=== PATIENT | female | born 1960 | race Caucasian/White ===

== ENCOUNTER 2017-11-09 17:24 | Outpatient (REF) | payer OTHER, SELFPAY ==
[2017-11-11 09:39] LABS: HBs Antibody, Quant <3.1 mIU/mL; Hepatitis B Surface Ab Negative
[2017-11-11 10:24] LABS: Hepatitis C Ab w Rflx HCV PCR Negative (NEGAT)
[2017-11-11 11:06] LABS: Hepatitis A IgM Ab Negative (Negative)
== END 2017-11-09 17:44 ==
LOC: NCHCN 17:24
PROVIDERS: PCP Nurse Practitioner Family; Visit Provider Nurse Practitioner Family
DX: Z11.59 Encounter for screening for other viral diseases (principal); Z71.89 Other specified counseling; Z00.00 Encounter for general adult medical examination without abnormal findings
CPT/HCPCS: 86706; 86803; 86709

== ENCOUNTER 2017-11-16 00:46 | Outpatient (CLI) | payer OTHER, SELFPAY ==
--- NOTE | 2017-11-16 08:29 | DI.MAMMO_ITS ---
SYMPTOM/DIAGNOSIS: SCREENING, Z12.31 MAMMOGRAM: Mammograms were interpreted according to the usual protocol including computer analysis with CAD system, tomosynthesis and C view imaging. Comparison with prior examinations. Breast density B. No masses or microcalcifications are seen. There is nothing to suggest malignancy. IMPRESSION: Negative mammogram. Routine screening is recommended. Category I. MQSA ASSESSMENT OF FINDINGS: Negative. Category 1. Patient will receive a letter notifying them of these results. BI-RADS category B. There are scattered areas of fibroglandular density.
== END 2017-11-16 01:06 ==
PROVIDERS: PCP Nurse Practitioner Family; Visit Provider Nurse Practitioner Family
DX: Z12.31 Encounter for screening mammogram for malignant neoplasm of breast (principal)
CPT/HCPCS: 77063; 77067

== ENCOUNTER 2018-02-08 11:48 | Outpatient (REF) | payer OTHER, SELFPAY ==
[2018-02-08 22:44] LABS: ALT 34 U/L (12-78); AST 16 U/L (15-37); Albumin 3.9 g/dL (3.4-5.0); Alkaline Phosphatase 78 U/L (46-116); Anion Gap 10.8 mmol/L (3-11); BUN 13 mg/dL (7-18); Bilirubin, Total 0.3 mg/dL (0.2-1.0); CO2 28.2 mmol/L (21.0-32.0); CREATININE 0.79 mg/dL (0.55-1.02); Calcium 8.9 mg/dL (8.5-10.1); Chloride 100 mmol/L (98-107); Glucose 103 mg/dL (70-100); Potassium 4.2 mmol/L (3.5-5.1); Sodium 139 mmol/L (136-145)
== END 2018-02-08 12:08 ==
LOC: NCHCN 11:48
PROVIDERS: PCP Nurse Practitioner Family; Visit Provider Nurse Practitioner Family
DX: K30 Functional dyspepsia (principal); R00.2 Palpitations; G25.81 Restless legs syndrome; F41.8 Other specified anxiety disorders; I10 Essential (primary) hypertension; E78.5 Hyperlipidemia, unspecified; J30.2 Other seasonal allergic rhinitis; G47.9 Sleep disorder, unspecified
CPT/HCPCS: 80053

== ENCOUNTER 2018-03-19 17:11 | Outpatient (REF) | payer OTHER, SELFPAY ==
[2018-03-19 20:47] LABS: Abs Immature Grans 0.05 k/cumm (0.0-0.09); Absolute Basophil Count 0.09 k/cumm (0.0-0.2); Absolute Eosinophil Count 0.21 k/cumm (0.0-0.7); Absolute Lymphocyte Count 2.15 k/cumm (1.2-3.4); Absolute Monocyte Count 0.69 k/cumm (0.11-0.7); Absolute Neutrophil Count 4.09 k/cumm (1.2-6.7); Basophils % 1.2; Eosinophils % 2.9; HCT 42.8 % (36.0-46.0); HGB 14.7 g/dL (12.0-15.5); Immature Grans % 0.7; Lymphocytes % 29.5; Mean Corp. HGB Concentration 34.3 g/dL (32.0-36.0); Mean Corpuscular Hemoglobin 30.4 pg (27.0-33.0); Mean Corpuscular Volume 88.6 fL (80-95); Mean Platelet Volume 10.4 fL (8.0-11.0); Monocytes % 9.5; Neutrophils % 56.2; Platelet Count 232 x1000/uL (130-400); RBC 4.83 m/cumm (4.00-5.20); RBC Distribution Width 12.5 % (11.7-14.6); White Blood Cell Count 7.28 k/cumm (4.4-10.8)
[2018-03-19 21:19] LABS: Anion Gap 9.6 mmol/L (3-11); BUN 12 mg/dL (7-18); CO2 28.4 mmol/L (21.0-32.0); CREATININE 0.93 mg/dL (0.55-1.02); Calcium 9.6 mg/dL (8.5-10.1); Chloride 101 mmol/L (98-107); Glucose 108 mg/dL (70-100); Potassium 4.2 mmol/L (3.5-5.1); Sodium 139 mmol/L (136-145); TSH 1.32 uIU/mL (0.358-3.74)
[2018-03-19 21:35] LABS: FREE T4 1.04 ng/dL (0.76-1.46)
[2018-03-19 21:59] LABS: ESR 5 MM/HR (0-30)
[2018-03-20 17:38] LABS: T3,Free 3.5 pg/ml (2.8-5.3)
== END 2018-03-19 17:31 ==
LOC: NCHCN 17:11
PROVIDERS: PCP Nurse Practitioner Family; Visit Provider Nurse Practitioner Family
DX: N95.1 Menopausal and female climacteric states (principal); R23.2 Flushing
CPT/HCPCS: 80048; 85652; 83735; 84439; 84443; 84481; 85025

== ENCOUNTER 2018-12-08 01:26 | Outpatient (CLI) | payer OTHER, SELFPAY ==
--- NOTE | 2018-12-08 13:10 | DI.MAMMO_ITS ---
EXAM: MG MAMMO SCREENING CLINICAL HISTORY: SCREENING, Z12.31. TECHNIQUE: Mammograms were interpreted according to the usual protocol including computer analysis w [employer] CAD system, tomosynthesis and C-view imaging. COMPARISON: 2009 THROUGH 2018 FINDINGS: The breasts are heterogeneously dense, which may obscure small masses. There are no dominant masses o r microcalcifications. There has been no significant change in comparison with the previous examinati ons. IMPRESSION: Yearly screening mammography is recommended. BI-RADS Cat 1 - Negative Breast Density - Category C - Heterogeneously dense
== END 2018-12-08 01:46 ==
PROVIDERS: PCP Nurse Practitioner Family; Visit Provider Nurse Practitioner Family
DX: Z12.31 Encounter for screening mammogram for malignant neoplasm of breast (principal)
CPT/HCPCS: 77063; 77067

== ENCOUNTER 2019-03-15 13:51 | Outpatient (REF) | payer OTHER, SELFPAY ==
[2019-03-15 21:27] LABS: ALT 35 U/L (14-59); AST 17 U/L (15-37); Albumin 4.1 g/dL (3.4-5.0); Alkaline Phosphatase 81 U/L (46-116); Anion Gap 11.6 mmol/L (3-11); BUN 15 mg/dL (7-18); Bilirubin, Total 0.4 mg/dL (0.2-1.0); CO2 27.4 mmol/L (21.0-32.0); CREATININE 0.63 mg/dL (0.55-1.02); Calcium 9.5 mg/dL (8.5-10.1); Chloride 101 mmol/L (98-107); Glucose 105 mg/dL (74-106); Potassium 4.4 mmol/L (3.5-5.1); Sodium 140 mmol/L (136-145)
== END 2019-03-15 14:11 ==
LOC: NCHCN 13:51
PROVIDERS: PCP Nurse Practitioner Family; Visit Provider Nurse Practitioner Family
DX: E78.5 Hyperlipidemia, unspecified (principal); G47.9 Sleep disorder, unspecified; F41.8 Other specified anxiety disorders; I10 Essential (primary) hypertension; R07.9 Chest pain, unspecified; K30 Functional dyspepsia
CPT/HCPCS: 80053

== ENCOUNTER 2020-03-05 01:28 | Outpatient (CLI) | payer OTHER, SELFPAY ==
--- NOTE | 2020-03-05 15:07 | DI.MAMMO_ITS ---
EXAM: MG MAMMO SCREENING CLINICAL HISTORY: SCREENING, Z12.31. TECHNIQUE: Bilateral full field digital CC and MLO mammographic images were obtained with 3D tomosyn thesis and utilizing computer aided detection (CAD). COMPARISON: Prior mammograms dating back to 2011, the most recent being November 2018. FINDINGS: There are no CAD designations. There are no spiculated masses nor malignant appearing microcalcification groups. There is no signif icant architectural distortion nor skin thickening-retraction. IMPRESSION: No radiographic evidence of malignancy. BI-RADS Category 1 - Negative Breast Density - Category C - Heterogeneously dense Breast density Category C or D implies that the patient has dense breast tissue. Dense breast tissue can make it harder to find cancer on a mammogram. Dense breast tissue is also associated with an incr eased risk of breast cancer. This information about the result of the mammogram report was provided to the patient to raise their awareness. Use this report when you speak with the patient about their risks for breast cancer, which includes their family history. At that time, you may recommend additional screening tests (Ultrasoun d or MRI) as these tests may add significant information. A negative radiographic report should not delay biopsy if a dominant or clinically suspicious mass is present. Up to ten percent of cancers are not identified on mammography. A negative report may reinforce clinical impression. Adenosis and dense breasts may obscure an underlying neoplasm. False positive reports average 6 to 10%. Patient will receive a letter notifying them of these results.
== END 2020-03-05 01:48 ==
PROVIDERS: PCP Nurse Practitioner Family; Visit Provider Nurse Practitioner Family
DX: Z12.31 Encounter for screening mammogram for malignant neoplasm of breast (principal)
CPT/HCPCS: 77063; 77067

== ENCOUNTER 2020-03-15 11:25 | Outpatient (REF) | payer OTHER, SELFPAY ==
[2020-03-15 21:10] LABS: ALT 42 U/L (14-59); AST 23 U/L (15-37); Albumin 4.2 g/dL (3.4-5.0); Alkaline Phosphatase 91 U/L (46-116); Anion Gap 10.8 mmol/L (3-11); BUN 13 mg/dL (7-18); Bilirubin, Total 0.4 mg/dL (0.2-1.0); CO2 26.2 mmol/L (21.0-32.0); CREATININE 0.87 mg/dL (0.55-1.02); Calcium 9.3 mg/dL (8.5-10.1); Chloride 102 mmol/L (98-107); Glucose 122 mg/dL (74-106); Potassium 4.3 mmol/L (3.5-5.1); Sodium 139 mmol/L (136-145); Total Protein 7.4 g/dL (6.4-8.2)
== END 2020-03-15 11:45 ==
LOC: NCHCN 11:25
PROVIDERS: PCP Nurse Practitioner Family; Visit Provider Nurse Practitioner Family
DX: E78.5 Hyperlipidemia, unspecified (principal); I10 Essential (primary) hypertension; R07.9 Chest pain, unspecified; F41.8 Other specified anxiety disorders
CPT/HCPCS: 80053

== ENCOUNTER 2020-07-16 08:59 | Outpatient (REF) | payer OTHER, SELFPAY ==
[2020-07-16 14:02] LABS: Hemoglobin A1C 5.7 % (<5.7)
== END 2020-07-16 09:00 | disposition home or self-care (01) ==
LOC: NCHCN 08:59
PROVIDERS: PCP Nurse Practitioner Family; Visit Provider Nurse Practitioner Family
DX: R73.9 Hyperglycemia, unspecified (principal); I10 Essential (primary) hypertension
CPT/HCPCS: 83036

== ENCOUNTER 2021-11-14 14:40 | Outpatient (REF) | payer OTHER, SELFPAY ==
--- NOTE | 2021-11-14 12:15 | PAPFT_PTH ---
PATIENT: Rosalba Worthy LOC: [facility]#:[id number] AGE/SX: 61/F ROOM: RE11/14/[address]: Yesica Lynn : 1960 BED: DIS: 11/14/2021 SPEC #: [id number] RECD: 11/14/21 18:21 STATUS: LAURIE REQ #: [id number] TIMOTEO: 11/14/21 12:[address]: Yesica Lynn DEPT: [facility] Cytology RECD BY: Jackie Crooks Tissues: 1 - CX/ENDOCX FOR PAP SMEARS Procedures: PAP THIN PREP/UVM Screening HPV DNA PROBE Comments: [id number]
[2021-11-14 16:42] LABS: ALT 43 U/L (14-59); AST 24 U/L (15-37); Albumin 4.2 g/dL (3.4-5.0); Alkaline Phosphatase 84 U/L (46-116); Anion Gap 10.5 mmol/L (3-11); BUN 12 mg/dL (7-18); Bilirubin, Total 0.5 mg/dL (0.2-1.0); CO2 25.5 mmol/L (21.0-32.0); CREATININE 0.9 mg/dL (0.55-1.02); Calcium 9.4 mg/dL (8.5-10.1); Chloride 100 mmol/L (98-107); Estimated GFR 73.19 (mL/min/1.73m2); Glucose 120 mg/dL (74-106); Potassium 4.1 mmol/L (3.5-5.1); Sodium 136 mmol/L (136-145); Total Protein 7.7 g/dL (6.4-8.2)
[2021-11-14 16:49] LABS: Hemoglobin A1C 5.7 % (<5.7)
== END 2021-11-14 14:41 | disposition home or self-care (01) ==
LOC: NCHCN 14:40
PROVIDERS: PCP Nurse Practitioner Family; Visit Provider Nurse Practitioner Family
DX: Z00.00 Encounter for general adult medical examination without abnormal findings (principal); Z12.4 Encounter for screening for malignant neoplasm of cervix; M54.9 Dorsalgia, unspecified; N39.3 Stress incontinence (female) (male); R73.03 Prediabetes; N95.1 Menopausal and female climacteric states; K30 Functional dyspepsia; R07.9 Chest pain, unspecified; I10 Essential (primary) hypertension
CPT/HCPCS: 80053; 88142; 83036; 87624

== ENCOUNTER → 2021-12-10 01:48 | Outpatient (CLI) | payer OTHER, SELFPAY ==
--- NOTE | 2021-12-10 | DI.MAMMO_ITS ---
Exam(s) MAMMO SCREENING EXAM: MAMMO SCREENING CLINICAL HISTORY: SCREENING FOR BREAST CANCER Z12.31 TECHNIQUE: Bilateral full field digital CC and MLO mammographic images were obtained with 3D tomosyn thesis and utilizing computer aided detection (CAD). COMPARISON: Available for comparison. FINDINGS: Masses/Architectural Distortion: None seen. Microcalcifications: No suspicious pleomorphic-type are seen. Skin Thickening/Nipple Retraction: None. IMPRESSION: 1. No significant interval change with no specific features of malignancy noted. 2. Unless there is more urgent need, screening mammography is recommended, as per [employer] guidelines. BI-RADS Category 1 - Negative Breast Density - Category B - Scattered areas of fibroglandular density Breast density category C or D implies that the patient has dense breast tissue. Dense breast tissue is very common and is not abnormal but dense breast tissue can make it harder to find cancer on a ma mmogram. Also, dense breast tissue may increase their breast cancer risk. This information about the result of the mammogram report was provided to the patient to raise their awareness. Use this report when you speak with the patient about their risks for breast cancer, which includes their family hist ory. At that time, you may recommend for more screening tests (Ultrasound or MRI) as they might be us eful based on their risk. A negative radiographic report should not delay biopsy if a dominant or clinically suspicious mass is present. Up to ten percent of cancers are not identified on mammography. A negative report may reinforce clinical impression. Adenosis and dense breasts may obscure an underlying neoplasm. False positive reports average 6 to 10%. Patient will receive a letter notifying them of these results.
== END ==
PROVIDERS: PCP Nurse Practitioner Family; Visit Provider Nurse Practitioner Family
DX: Z12.31 Encounter for screening mammogram for malignant neoplasm of breast (principal)
CPT/HCPCS: 77063; 77067

== ENCOUNTER 2022-09-12 07:06 | Day surgery (SDC) | payer OTHER, SELFPAY ==
--- NOTE | 2022-09-11 18:30 | W.COLOREPORT ---
Date of service: 09/12/22 Time of Service: 08:45 Colonoscopy Report Date of procedure: 09/12/22 Pre-op diagnosis general: crc screening Surgeon: Steffanie Triplett Anesthesia Type: General:No Airway Complications: None Disposition: same day Prep: Miralax/Dulcolax Retraction Time: 12 Procedure Description: After informed consent was obtained the patient was taken to the procedure room and placed in a left decubitous position. Monitors were applied and a time out was done. The patients name, date of , procedure, allergies to medications and metal in their body was reviewed. The patient was then sedated. Once sedated and comfortable a rectal exam was done. External exam shows x1 external hemorrhoid that is not inflamed. No. Internal exam revealed a normal sphincter tone and no palpable masses. The scope was then introduced and retrofelexed. No internal hemorrhoids were identified. The scope was then advanced to the cecum without difficulty. The TI and appendiceal orifice were identified. The prep was BBPS 2 in all segments for total of 6. The scope was then slowly retracted over 12 minutes back into the rectum. She has moderate to severe diverticula in the sigmoid colon. These do carry all the way over to the right colon. There is no signs of active bleeding or infection. She is a flat 5 mm polyp in the rectum that is removed with a cold biting forcep. All specimen was retrieved and no bleeding is noted. The scope was removed and the patient was woken up and taken back to Same day surgery in stable condition. The patient tolerated the procedure well and there were no immediate complications. Follow up: The patient should follow up in 7-10 years, path pending unless they develop changes in bowel habits or other new gastrointestinal complaints.
--- NOTE | 2022-09-11 18:31 | PDOC.DSDIS_ITS ---
Date of service: 09/12/22 Time of Service: 09:04 Discharge Plan Disposition Patient Disposition: Home Condition: Good Discharge Details Reason For Visit: Colon scope Attending Provider: Steffanie Triplett Primary Care Provider: Yesica Lynn Home Meds and New Rx's Prescriptions: Continued ibuprofen 200 MG capsule 200 mg PO PRN triamcinolone acetonide 15 GM cream 15 g Topical BID fluticasone propionate [Flonase Allergy Relief] 9.9 ML spray,suspension 9.9 ml NS DAILY magnesium oxide 500 MG capsule 500 mg PO DAILY propranolol 20 mg tablet 20 mg PO BID lisinopril 10 mg tablet 20 mg PO DAILY buspirone 15 mg tablet 30 mg PO BID venlafaxine 75 mg capsule,extended release 24hr 75 mg PO DAILY venlafaxine 150 mg capsule,extended release 24hr 150 mg PO DAILY atorvastatin 80 mg tablet 80 mg PO QHS cetirizine [All Day Allergy (cetirizine)] 10 mg tablet 10 mg PO DAILY PRN Discontinued bisacodyl [Dulcolax (bisacodyl)] 5 mg tablet,delayed release (DR/EC) 5 mg PO ONCE Qty: 4 0RF Rx Instructions: Take per colonoscopy instructions provided by ordering providers office polyethylene glycol 3350 17 gram/dose powder 17 g PO ONCE Qty: 238 0RF Rx Instructions: Take per colonoscopy instructions provided by ordering providers office Discharge Instructions Additional Instructions: DSU Colonoscopy Post- Op Instructions Instructions for Everyone who is given Anesthesia: For your safety, please do the following for the next twenty-four (24) hours: *Do Not operate a motor vehicle (car, truck, motorcycle, etc.) *Do Not drink alcoholic beverages or use any recreational drugs for the first 24 hours or while taking pain medications. The medications in your body may have a reaction that can be dangerous. *Do Not make any important decisions or sign any important papers. Findings: -Diverticula: Make sure you are moving your bowels on a regular basis and you not straining to go to the bathroom. If you find you are having problems with constipation or irregularity, I recommend you start a fiber product such as Metamucil. -polyp: There was a small polyp noted. My office will send a letter in 2 to 3 weeks time with the results of the pathology and when we want you to repeat the colonoscopy. Follow up: 1. No lifting over 20 pounds or strenuous activity for the first 24 hours after your procedure. After 24 hours there are no restrictions on your activity but you may feel fatigued for a few days. 2. After you arrive home you may have a light meal and return to your normal diet as you can tolerate it without feeling sick to your stomach. 3. You may have a bloated, gaseous feeling in your belly (abdomen) after a colon oscopy. Passing gas and belching will help. Walking or lying down on your left side with your knees flexed may relieve the discomfort. Call the office at [phone] (Office) or [phone] (Hospital) right away if you notice any of the following: a.Vomiting of blood or ?coffee ground stools?. b.Rectal bleeding 1Tbsp, blood clots or continuous bleeding. c.Severe belly (abdominal) pain. d.A hard distended belly (abdomen) and an inability to pass gas. 4. Please don?t expect to have a normal BM (bowel movement) for 2-3 days after your procedure. 5. If there are questions regarding the findings of your procedure, please contact your doctor 6. If you are unable to contact your doctor with a problem, contact the hospital at [phone]. 7. Continue all your regular medications unless directed otherwise. I understand the above instructions and have no questions. Signature of Patient or Adult Escort Name of Responsible Adult Escort Signature of Nurse Date/Time Activity:: see above Diet:: see above Discharge Orders Discharge Orders: Discharge Order (Routine); Ordered 09/12/22 Ordered By: Steffanie Triplett DS: Diagnosis Discharge Diagnosis (1) Hypertension: Status: Chronic (2) Anxiety and depression: Status: Chronic (3) Hyperlipidemia: Status: Acute (4) Dyspepsia: (5) History of prediabetes: (6) RLS (restless legs syndrome): (7) Screening for malignant neoplasm of colon performed: Status: Acute Asessment and Plan: Post [place] Note/Eval The patient is seen and examined after their colonoscopy.? The patient has been able to pass gas.? They are not having abdominal pain.? They have been able to tolerate liquids and a snack.? They do not have any nausea or vomiting.? They are not having any chest pain or shortness of breath.??? They are not having any rectal bleeding. Their vital signs have been stable-see nursing notes. We discussed findings during their colonoscopy, and any biopsies that were done/polyps that were removed. The patient will be sent a letter with any biopsy results, and when to repeat the colonoscopy.-see discharge instructions. Patient was given explicit instructions to follow-up regarding colonoscopy-refer to discharge instructions.? We reviewed resumption of medications. Patient verbalized understanding and discharged in stable and satisfactory condition- See nursing notes.
--- NOTE | 2022-09-12 06:32 | ANES.PREOP_ITS ---
General Info Date of Service Date Performed: 09/12/22 Height: 5 ft 7 in Weight: 73.936 kg Body Mass Index (BMI): 25.5 Surgical Procedure: Operation Date: 09/12/22 08:20 Proposed Procedure Side Surgeon elena Triplett, DO Meds Allergies and Home Medications Allergies Allergy/AdvReac Type Severity Reaction Status Date / Time No Known Allergies Allergy Unverified 09/10/22 10:41 Home Medication Medication Instructions Recorded ibuprofen 200 mg capsule 200 mg PO PRN 02/16/14 fluticasone propionate 50 9.9 ml NS DAILY 01/19/17 mcg/actuation nasal spray,suspension (Flonase Allergy Relief) magnesium oxide 500 mg capsule 500 mg PO DAILY 01/19/17 triamcinolone acetonide 0.1 % 15 g topical BID 01/19/17 topical cream atorvastatin 80 mg tablet 80 mg PO QHS 01/30/22 buspirone 15 mg tablet 30 mg PO BID 01/30/22 cetirizine 10 mg tablet (All Day 10 mg PO DAILY PRN 01/30/22 Allergy (cetirizine)) lisinopril 10 mg tablet 20 mg PO DAILY 01/30/22 propranolol 20 mg tablet 20 mg PO BID 01/30/22 venlafaxine 150 mg 150 mg PO DAILY 01/30/22 capsule,extended release 24 hr venlafaxine 75 mg capsule,extended 75 mg PO DAILY 01/30/22 release 24 hr Current Visit Medications: Current Medications Generic Name Dose Route Start Last Admin Trade Name Freq PRN Reason Stop Dose Admin Hyoscyamine Sulfate 0.125 mg 09/12/22 02:58 Hyoscyamine 0.125 Mg Sl/Oral/Chew SL 10/12/22 02:57 DIRECTED PRN Ringer's Solution 1,000 mls @ 80 mls/hr 09/12/22 06:00 IV 10/11/22 23:59 [facility]ION [facility] IV Miscellaneous Supplies 1 each 09/12/22 06:00 Iv Access IV 10/11/22 23:59 DIRECTED [facility] Ondansetron HCl 4 mg 09/12/22 02:58 Ondansetron 4 Mg/2 Ml Vial IVP 10/12/22 02:57 Q4H PRN PRN Nausea / Vomiting Sodium Chloride 0 ml 09/12/22 06:00 Normal Saline Flush 10 Ml Syr IV 10/11/22 23:59 PRN PRN Sodium Chloride 0 ml 09/12/22 06:00 Normal Saline 10 Ml Vial IJ 10/11/22 23:59 DIRECTED PRN Sterile Water 0 ml 09/12/22 06:00 Water,Injection,Sterile 10 Ml Vial IJ 10/11/22 23:59 DIRECTED PRN PFSH Active Problems Active Problems: Problem Status Onset Code Screening for malignant neoplasm of colon performed Z12.11 Hypertension I10 Anxiety and depression F41.9, F32.A Hyperlipidemia E78.5 Medical History Medical History (Updated 09/11/22 @ 22:05 by Steffanie Triplett DO) Chest pain Per pt. states its anxiety related. F/U with PCP stated normal findings Dyspepsia Genital herpes History of prediabetes Hot flashes RLS (restless legs syndrome) Surgical History Surgical History Biopsy, Soft Tissue (01/14/17) skin of back, right side - dermal adipose tissue, no neoplasm. History of colonoscopy (~03/22/12) Tobacco Smoking/Tobacco Use Status: Never Alcohol Alcohol Intake: current Alcohol intake frequency: 0-2 drinks per day Alcohol type: wine Substance Use Substance use: Never Substance use type: does not use Vital Signs and Lab Results Vital Signs Most Recent Vital Signs in EMR: Temp Pulse Resp BP Pulse Ox 36.4 C L 107 H 16 140/105 H 97 09/12/22 07:46 09/12/22 07:46 09/12/22 07:46 09/12/22 07:46 09/12/22 07:46 Lab Results Blood Type / Crossmatch: No Data to Display Complete Blood Count: No Data to Display Complete Metabolic Panel: No Data to Display Liver Function Panel: No Data to Display Coagulation Panel: No Data to Display Cardiac Panel: No Data to Display Arterial Blood Gas: No Data to Display Venous Blood Gas: No Data to Display Pancreas Panel: No Data to Display Thyroid Panel: No Data to Display Infectious Disease: No Data to Display Blood Cultures: No Data to Display Toxicology Panel: No Data to Display Anesthesia Assessment and Plan Anesthesia History Personal History: No History of Anesthesia Complications Family History: No Family History of Anesthesia Complications Exercise Tolerance Exercise Tolerance: Metabolic Equivalents>4 Cardiac & Pulmonary Exam Cardiac Exam: Normal S1/S2 Heart Sounds Pulmonary Exam: Clear Bilateral Breath Sounds Implantable Cardiac Device Does patient have a Pacemaker or an ICD?: No Airway Exam Known Difficult Airway: No Mallampati Class: 3 Mouth Opening: Narrow (< 3cm) Thyromental Distance: Greater than 3 cm Neck Range of Motion: Full ROM Neck Circumference: Normal Teeth Condition: Normal Dentition ASA Classification ASA Score: ASA 2 Emergency Case?: No NPO Status NPO Status: NPO Clears >2 hours, Solids >8 hours Anesthesia Plan Resuscitation Status: Full Code Anesthesia Technique: General Anesthesia Airway Planned: Natural Airway Monitors Used: Standard Monitors Preoperative Comments:: 62 yo female for colo. Sig PMHx: HTN, anxiety/depressoin, GERD, RLS, never smoker, occ EtOH.
[2022-09-12 07:46] VITALS: BP 140/105; PULSE 107; RESP 16; TEMP 36.4; O2SAT 97
[2022-09-12] MEDS: Lactated Ringers 1,000 ML 80 ML IV (07:56)
[2022-09-12 08:23] VITALS: BMI 25.5
--- NOTE | 2022-09-12 08:54 | BOWEL_PTH ---
PATIENT: Rosalba Worthy LOC: [facility] U#:[id number] AGE/SX: 62/F ROOM: RE09/12/[address]: Steffanie Triplett : 1960 BED: DIS: 09/12/2022 SPEC #: [id number] RECD: 09/12/22 12:14 STATUS: LAURIE REQ #: [id number] TIMOTEO: 09/12/22 08:[address]: Steffanie Triplett DEPT: Surgical Specimen RECD BY: Jackie Crooks ENTERED: 09/12/22 12:15 SP TYPE: Bowel OTHR DR: Yesica Lynn Tissues: 1 - BIOPSY BOWEL Procedures: GROSS AND MICRO LEVEL 4 Comments: [id number]
[2022-09-12 09:00] VITALS: BP 131/90; PULSE 81; RESP 17; TEMP 36.2; O2SAT 98
--- NOTE | 2022-09-12 09:27 | W.ANESPOSTOP ---
Postoperative Evaluation Date, Time and Location Date Performed: 09/12/22 Time Performed: 09:16 Patient Location: Day Surgery Unit Vital Signs Most Recent Imported Vital Signs: Most Recent Vital Signs Temp Pulse Resp BP Pulse Ox 36.2 C L 81 17 131/90 98 09/12/22 09:00 09/12/22 09:00 09/12/22 09:00 09/12/22 09:00 09/12/22 09:00 Pain Score Most Recent Pain Score: Most Recent Pain Score Pain Level 0 09/12/22 09:00 Assessment Mental Status: Awake (Alert & Oriented to Patient Baseline) Airway and Respiratory Function: Patent airway with normal (patient baseline) respiratory exam Cardiovascular Function: Hemodynamically Stable Hydration Status: Adequately Hydrated Nausea & Vomiting: No Nausea or Vomiting Pain: Pt. Denies Any Pain Peripheral Nerve Block: Patient did not receive a nerve block
[2022-09-12 09:30] VITALS: BP 132/85; PULSE 79; RESP 17; TEMP 36.3; O2SAT 98
== END 2022-09-12 10:04 | disposition home or self-care (01) ==
PROVIDERS: PCP Nurse Practitioner Family; Visit Provider Surgery
PROC: 0DJD8ZZ Inspection of Lower Intestinal Tract, Via Natural or Artificial Opening Endoscopic (ICD-10-PCS; CPT 45378; principal; 2022-09-12 08:15)
DX: Z12.11 Encounter for screening for malignant neoplasm of colon; K62.1 Rectal polyp
CPT/HCPCS: 45380; 88305

== ENCOUNTER 2022-11-17 13:52 | Outpatient (REF) | payer OTHER, SELFPAY ==
[2022-11-17 15:41] LABS: Hemoglobin A1C 5.8 % (<5.7)
[2022-11-17 15:56] LABS: ALT 37 U/L (14-59); AST 19 U/L (15-37); Albumin 4.1 g/dL (3.4-5.0); Alkaline Phosphatase 90 U/L (46-116); Anion Gap 12.1 mmol/L (3-11); BUN 11 mg/dL (7-18); Bilirubin, Total 0.5 mg/dL (0.2-1.0); CO2 25.9 mmol/L (21.0-32.0); CREATININE 0.8 mg/dL (0.55-1.02); Calcium 9.8 mg/dL (8.5-10.1); Calculated LDL 127 mg/dL (<100); Chloride 98 mmol/L (98-107); Cholesterol 251 mg/dL (<200); Estimated GFR 83.78 (mL/min/1.73m2); Glucose 113 mg/dL (74-106); HDL Cholesterol 61 mg/dL (40-60); Potassium 4.1 mmol/L (3.5-5.1); Sodium 136 mmol/L (136-145); TSH (W/Ref FT4) 1.44 uIU/mL (0.36-3.74); Total Protein 7.2 g/dL (6.4-8.2); Triglyceride 315 mg/dL (<150)
== END 2022-11-17 13:53 | disposition home or self-care (01) ==
LOC: NCHCN 13:52
PROVIDERS: PCP Nurse Practitioner Family; Visit Provider Nurse Practitioner Family
DX: Z00.00 Encounter for general adult medical examination without abnormal findings (principal); R73.03 Prediabetes; R00.2 Palpitations; I10 Essential (primary) hypertension; F41.8 Other specified anxiety disorders; R07.9 Chest pain, unspecified; G25.81 Restless legs syndrome; E78.00 Pure hypercholesterolemia, unspecified
CPT/HCPCS: 80053; 80061; 83036; 83735; 84443

== ENCOUNTER → 2022-11-25 01:20 | Outpatient (CLI) | payer OTHER, SELFPAY ==
--- NOTE | 2022-11-25 | ETT_ITS ---
APPROVED REPORT Exam: Exercise Treadmill Patient Location: Out-Patient Room/Bed: Stress Nurse: Daly Leyva RN Ordering Provider:BEN KITCHEN, Contact Number: [phone] BMI: 27.95 Baseline Rhythm: Sinus Tachycardia Indications: Chets pain, palpitations Medical History Medical History: Back pain, chest pain, palpitations, HTN, HLD Cardiac Medications: Atorvastatin, venlafaxine, propranolol, buspirone, lisinopril Allergies: NKA Cardiac Risk Factors: Family hx, HTN, HLD, prediabetes Previous Cardiac Procedures: None Pretest Chest Pain Characteristics: None Exercise History: Sedentary Physical Disabilities: None Lung Sounds: Clear to auscultation Heart Sounds: Tachycardia Stress Test Details Test: Exercise stress testing was performed using a Michael protocol. Rest Stress HR Resting HR Supine: 100 bpm Max Heart Rate (APMHR): 159 bpm Resting HR Standin bpm Target HR (85% APMHR): 135 bpm Max HR Achieved: 162 bpm % of APMHR: 102 Recovery HR: 109 bpm HR response to stress: Accelerated HR response to stress BP Resting BP Supine: 156/102 mmHg Resting BP Standin/90 mmHg Max BP: 182/90 mmHg Recovery BP: 159/96 mmHg BP response to stress: Normal blood pressure response to stress. ECG Resting ECG: Sinus Tachycardia Ectopy: Rare PAC Stress ECG: Sinus Tachycardia ST Change: No significant ST segment changes noted Arrhythmia: Rare PAC Recovery ECG: Sinus Tachycardia Recovery ST Change: No significant ST segment changes noted Recovery Arrhythmia: Rare PAC Clinical Reason for Termination: Target HR Achieved Stress Symptoms: General Fatigue, Nausea Exercise duration: 06 min21 sec Highest Stage Reached: Stage 3: 3.4 mph at 14% grade. Exercise capacity: 7.58 METs Angina Score: None [place] Treadmill Score: 5.1 Rate Pressure Product: 20657 Stress ECG Conclusion 1. Resting electrocardiogram was within normal limits 2. Patient exercised on the Michael protocol and completed a workload of 7.58 METS 3. Normal heart rate and blood pressure response to exercise. Patient achieved greater than 100% of predicted heart rate for age 4. There was no electrocardiographic evidence of myocardial ischemia 5. There were no significant dysrhythmias [place] Treadmill Score is 5.1 which is Low risk. Stress Test Summary STAGE Time (mins) Speed (mph) Grade (%) HR BP SpO2 SYMPTOMS METS Supine 100 156/102 99 Standing 115 122/90 1 3 1.7 10 143 140/70 96 4.5 2 6 2.5 12 158 170/90 96 General fatigue 7 3 9 3.4 14 160 General fatigue, nausea 10 1 min recovery 140 138/80 98 General fatigue, nausea 3 min recovery 118 182/90 98 6 min recovery 109 152/96 All symptoms resolved
== END ==
PROVIDERS: PCP Nurse Practitioner Family; Visit Provider Nurse Practitioner Family
DX: R07.9 Chest pain, unspecified (principal); R00.2 Palpitations
CPT/HCPCS: 93017

== ENCOUNTER 2022-11-28 13:26 | Outpatient (CLI) | payer OTHER, SELFPAY | END 2022-11-28 13:27 | disposition home or self-care (01) | PROVIDERS: PCP Nurse Practitioner Family; Visit Provider Nurse Practitioner Family | DX: R07.9 Chest pain, unspecified (principal) | CPT/HCPCS: 93246 ==

== ENCOUNTER 2022-12-22 08:07 | Outpatient (CLI) | payer OTHER, SELFPAY ==
--- NOTE | 2022-12-22 08:32 | W.CARDEVENT ---
Date of service: 12/22/22 Time of Service: 08:32 Cardiac Event Recorder Referring Provider:: Maday Lynn Indications:: Palpitations and chest pain Cardiac Event Note: This is a cardiac event monitor. Patient was monitored for 13 days and 9 hours Predominant rhythm was sinus. Average heart rate was 85. Minimum was 52, maximum 155 There were very rare isolated atrial and ventricular ectopic beats There was 1 atrial run, 11 beats in duration There was no atrial fibrillation, no high-grade AV block, no pauses greater than 3 seconds Patient symptoms were reported which correlated with sinus tachycardia, rarely with PVCs
== END 2022-12-22 08:08 | disposition home or self-care (01) ==
LOC: CARDOPNVT 08:07
PROVIDERS: PCP Nurse Practitioner Family; Visit Provider Internal Medicine Cardiovascular Disease
DX: R00.2 Palpitations (principal); R07.9 Chest pain, unspecified; I49.1 Atrial premature depolarization

== ENCOUNTER → 2023-07-29 13:51 | Outpatient (CLI) | payer OTHER, SELFPAY ==
--- NOTE | 2023-07-29 12:59 | DI.RAD_ITS ---
Exam(s) XR CHEST 2V PA LATERAL EXAM: XR CHEST 2V PA LATERAL CLINICAL HISTORY: cough. r/o pneumonia R05.9 TECHNIQUE: 2D digital imaging was performed. Two views. COMPARISON: No exams were available for comparison FINDINGS: HEART: Normal size. Aorta: Not dilated. PULMONARY VASCULATURE: Normal. LUNGS: Clear. PLEURAL SPACE: No pleural effusion or pneumothorax. Mild apical scarring. BONE:Unremarkable for age. Soft tissues: Unremarkable. IMPRESSION: No acute abnormality. DATA REPOSITORY: RADIATION DOSE DELIVERED:
== END ==
PROVIDERS: PCP Nurse Practitioner Family; Visit Provider Physician Assistant
DX: R05.9 Cough, unspecified (principal)
CPT/HCPCS: 71046

== ENCOUNTER → 2023-07-31 00:17 | Outpatient (CLI) | payer OTHER, SELFPAY ==
--- NOTE | 2023-07-31 | DI.MAMMO_ITS ---
Exam(s) MAMMO SCREENING EXAM: MAMMO SCREENING CLINICAL HISTORY: Screening, Z12.31 TECHNIQUE: Mammograms were interpreted according to the usual protocol including computer analysis w [employer] CAD system, tomosynthesis and C-view imaging. COMPARISON: 2013 through 2021 FINDINGS: The breasts are composed of scattered fibroglandular densities, Breast Density category B. No suspicious masses or suspicious microcalcifications are seen. No skin thickening or abnormal axillary lymph nodes are seen. There has been no significant change from prior exams. IMPRESSION: BI-RADS Category 1, Negative mammogram Yearly screening mammography is recommended. Breast Density - Category B, scattered fibroglandular densities. A negative radiographic report should not delay biopsy if a dominant or clinically suspicious mass is present. Up to ten percent of cancers are not identified on mammography. A negative report may reinforce clinical impression. Adenosis and dense breasts may obscure an underlying neoplasm. False positive reports average 6 to 10%. Patient will receive a letter notifying them of these results.
== END ==
PROVIDERS: PCP Nurse Practitioner Family; Visit Provider Nurse Practitioner Family
DX: Z12.31 Encounter for screening mammogram for malignant neoplasm of breast (principal)
CPT/HCPCS: 77063; 77067

== ENCOUNTER 2023-11-10 18:54 | Observation (INO) | payer OTHER, SELFPAY ==
--- NOTE | 2023-11-10 18:45 | RT.EKG_ITS ---
APPROVED REPORT Exam: Resting ECG Reason for Exam: Eval blunt cardiac inj Patient Location: E HR:79 bpm ECG Measurements Heart Rate 79 AXIS MT 149 P 37 QRSd 82 QRS 3 QT 382 T 59 QTc 438 Conclusion Sinus rhythm, rate 79 Isolated biphasic T wave aVL No ectopy, interval abnoramlity No STEMI
[2023-11-10 18:54] VITALS: BP 144/97; PULSE 80; RESP 14; TEMP 37; O2SAT 96
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
[2023-11-10 19:16] LABS: Abs Immature Grans 0.03 10^3/uL (0.0-0.06); Absolute Basophil Count 0.08 10^3/uL (0.0-0.2); Absolute Eosinophil Count 0.16 10^3/uL (0.0-0.7); Absolute Lymphocyte Count 2.67 10^3/uL (1.2-3.4); Absolute Monocyte Count 0.76 10^3/uL (0.1-0.8); Absolute Neutrophil Count 3.06 10^3/uL (1.2-6.7); Basophils % 1.2 %; Eosinophils % 2.4 %; HCT 41.5 % (36.0-46.0); HGB 13.8 g/dL (11.2-15.7); Immature Grans % 0.4 %; Lymphocytes % 39.5 %; MCH 29.3 pg (27.0-33.0); MCHC 33.3 % (32.0-36.0); MCV 88 fL (80-95); Monocytes % 11.2 %; Neutrophils % 45.3 %; Platelet Count 204 10^3/uL (130-400); RBC 4.71 10^6/uL (3.93-5.22); RDW 11.6 % (11.7-14.6); RDW-SD 37.7 fL; WBC 6.76 10^3/uL (4.4-10.8)
[2023-11-10 19:43] LABS: ALT 38 U/L (14-59); AST 20 U/L (15-37); Albumin 4.2 g/dL (3.4-5.0); Alkaline Phosphatase 85 U/L (46-116); Anion Gap 7.1 mmol/L (3-11); BUN 11 mg/dL (7-18); Bilirubin, Total 0.42 mg/dL (0.2-1.0); CO2 30.9 mmol/L (21.0-32.0); CREATININE 0.8 mg/dL (0.55-1.02); Calcium 9.7 mg/dL (8.5-10.1); Chloride 99 mmol/L (98-107); Estimated GFR 83.26 (mL/min/1.73m2); Glucose 102 mg/dL (74-106); Potassium 3.7 mmol/L (3.5-5.1); Sodium 137 mmol/L (136-145); Total Protein 7.6 g/dL (6.4-8.2); Troponin I 6 ng/L (4-51)
[2023-11-10] MEDS: Omnipaque 350 MG/ML 100 ML BTL 70 ML IJ (19:51)
[2023-11-10] MEDS: Normal Saline - Diluent 50 ML VIAL IJ (19:57)
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
[2023-11-10 21:16] LABS: Troponin I 7 ng/L (4-51)
[2023-11-10] MEDS: Acetaminophen 500 MG TAB 1000 MG PO (22:46)
[2023-11-10] MEDS: HYDROmorphone 2 MG/ML SYR 0.5 MG IVP (22:53)
[2023-11-10] MEDS: Ketorolac 15 MG/ML VIAL IVP (22:54)
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
[2023-11-10 23:29] VITALS: BP 122/85; PULSE 74; RESP 16; O2SAT 98
[2023-11-11] VITALS (9 sets, daily range): BP systolic 102–123; BP diastolic 68–81; PULSE 70–90; RESP 14–18; TEMP 36–37; O2SAT 92–97
--- NOTE | 2023-11-11 | DI.RAD_ITS ---
Exam(s) XR CHEST 2V PA LATERAL EXAM: XR CHEST 2V PA LATERAL CLINICAL HISTORY: rule out pulm contusions, hemo/pneumothorax TECHNIQUE: 2D digital imaging was performed. Two views. COMPARISON: CT CT CHEST W from 11/10/2023 FINDINGS: HEART: Normal size. Aorta: Not dilated. PULMONARY VASCULATURE: Normal. MEDIASTINUM: Unremarkable. LUNGS: Mild fibrotic changes. Biapical scarring. PLEURAL SPACE: No pleural effusion or pneumothorax. BONE:Upper sternal fracture. SOFT TISSUES: Unremarkable. IMPRESSION: Upper sternal fracture. No evidence of pneumothorax or pulmonary contusion.. DATA REPOSITORY: RADIATION DOSE DELIVERED:
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
[2023-11-11 03:40] LABS: Troponin I 7 ng/L (4-51)
[2023-11-11] MEDS: Heparin 5,000 UNITS/ML VIAL 5000 UNITS SC (05:56)
[2023-11-11] MEDS: Acetaminophen 325 MG TAB PO ×2 (06:09→09:55)
[2023-11-11] MEDS: HYDROmorphone 2 MG/ML SYR 0.5 MG IVP (06:11)
[2023-11-11] MEDS: Normal Saline Flush 10 ML SYR IVP ×5 (06:11→21:01)
[2023-11-11 06:22] LABS: HCT 40.4 % (36.0-46.0); HGB 13.5 g/dL (11.2-15.7); MCH 29.4 pg (27.0-33.0); MCHC 33.4 % (32.0-36.0); MCV 88 fL (80-95); MPV 10.2 fL (8.0-11.0); Platelet Count 185 10^3/uL (130-400); RBC 4.59 10^6/uL (3.93-5.22); RDW 11.8 % (11.7-14.6); RDW-SD 37.9 fL; WBC 6.24 10^3/uL (4.4-10.8)
[2023-11-11 06:36] LABS: Troponin I 7 ng/L (4-51)
[2023-11-11 06:43] LABS: ALT 31 U/L (14-59); AST 17 U/L (15-37); Albumin 3.9 g/dL (3.4-5.0); Alkaline Phosphatase 81 U/L (46-116); Anion Gap 7.7 mmol/L (3-11); BUN 11 mg/dL (7-18); Bilirubin, Total 0.45 mg/dL (0.2-1.0); CO2 29.3 mmol/L (21.0-32.0); CREATININE 0.9 mg/dL (0.55-1.02); Calcium 9.7 mg/dL (8.5-10.1); Chloride 100 mmol/L (98-107); Estimated GFR 72.28 (mL/min/1.73m2); Glucose 100 mg/dL (74-106); Magnesium 2.2 mg/dL (1.8-2.4); Potassium 3.7 mmol/L (3.5-5.1); Sodium 137 mmol/L (136-145)
[2023-11-11] MEDS: Venlafaxine 150 MG CAPCR PO (08:14)
[2023-11-11] MEDS: busPIRone 15 MG TAB 30 MG PO ×2 (08:16→21:00)
[2023-11-11] MEDS: Lisinopril 10 MG TAB 20 MG PO (08:16)
[2023-11-11] MEDS: Magnesium Oxide 400 MG TAB PO (08:17)
[2023-11-11] MEDS: Propranolol 20 MG TAB PO ×2 (08:17→21:00)
[2023-11-11] MEDS: Venlafaxine 75 MG CAPCR PO (08:17)
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
[2023-11-11] MEDS: Cetirizine 10 MG TAB PO (10:22)
[2023-11-11] MEDS: Pantoprazole 40 MG VIAL IVP (11:31)
[2023-11-11] MEDS: Acetaminophen 325 MG TAB 1000 MG PO ×2 (11:31→17:50)
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
[2023-11-11] MEDS: Ketorolac 15 MG/ML VIAL IVP ×2 (13:32→21:00)
[2023-11-11] MEDS: Polyethylene Glycol 3350 17 GM PACKET PO (16:19)
[2023-11-11] MEDS: Docusate Sodium 100 MG CAP PO ×2 (16:20→21:00)
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
[2023-11-11] MEDS: Atorvastatin 40 MG TAB 80 MG PO (21:00)
[2023-11-11] MEDS: Acetaminophen 500 MG TAB 1000 MG PO (23:59)
[2023-11-12] MEDS: HYDROmorphone 2 MG/ML SYR 0.5 MG IVP (00:29)
[2023-11-12] MEDS: Ketorolac 15 MG/ML VIAL IVP ×3 (02:19→13:38)
[2023-11-12] MEDS: Normal Saline Flush 10 ML SYR IVP ×2 (02:21→09:58)
[2023-11-12 03:30] VITALS: BP 96/58; PULSE 74; RESP 16; TEMP 36.4; O2SAT 93
[2023-11-12] MEDS: Acetaminophen 500 MG TAB 1000 MG PO ×2 (04:59→13:39)
[2023-11-12 07:30] VITALS: BP 106/71; PULSE 81; RESP 15; TEMP 36; O2SAT 98
[2023-11-12 09:00] LABS: Anion Gap 4.2 mmol/L (3-11); BUN 19 mg/dL (7-18); CO2 31.8 mmol/L (21.0-32.0); CREATININE 0.9 mg/dL (0.55-1.02); Chloride 100 mmol/L (98-107); Estimated GFR 72.28 (mL/min/1.73m2); Glucose 108 mg/dL (74-106); Potassium 4.3 mmol/L (3.5-5.1); Sodium 136 mmol/L (136-145)
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
[2023-11-12] MEDS: Venlafaxine 150 MG CAPCR PO (09:57)
[2023-11-12] MEDS: Docusate Sodium 100 MG CAP PO ×2 (09:57→13:39)
[2023-11-12] MEDS: Venlafaxine 75 MG CAPCR PO (09:57)
[2023-11-12] MEDS: Magnesium Oxide 400 MG TAB PO (09:57)
[2023-11-12] MEDS: Propranolol 20 MG TAB PO (09:57)
[2023-11-12] MEDS: busPIRone 15 MG TAB 30 MG PO (09:57)
[2023-11-12] MEDS: Lisinopril 20 MG TAB PO (09:57)
[2023-11-12] MEDS: Pantoprazole 40 MG VIAL IVP (09:58)
[2023-11-12] MEDS: Cetirizine 10 MG TAB PO (10:03)
[2023-11-12 10:20] LABS: Abs Immature Grans 0.02 10^3/uL (0.0-0.06); Absolute Basophil Count 0.06 10^3/uL (0.0-0.2); Absolute Eosinophil Count 0.16 10^3/uL (0.0-0.7); Absolute Lymphocyte Count 2.57 10^3/uL (1.2-3.4); Absolute Monocyte Count 0.88 10^3/uL (0.1-0.8); Absolute Neutrophil Count 3.03 10^3/uL (1.2-6.7); Basophils % 0.9 %; Eosinophils % 2.4 %; HCT 38.4 % (36.0-46.0); HGB 13.2 g/dL (11.2-15.7); Immature Grans % 0.3 %; Lymphocytes % 38.2 %; MCH 29.9 pg (27.0-33.0); MCHC 34.4 % (32.0-36.0); MCV 87 fL (80-95); Monocytes % 13.1 %; Neutrophils % 45.1 %; Platelet Count 191 10^3/uL (130-400); RBC 4.41 10^6/uL (3.93-5.22); RDW-SD 38.5 fL; WBC 6.72 10^3/uL (4.4-10.8)
--- NOTE | 2023-11-12 10:20 | PGE_ITS ---
Date of Service Date of service: 11/12/23 Time of Service: 10:20 Assessment and Plan Assessment and plan (1) Sternal fracture: Status: Acute Assessment and plan: Currently the patient is asymptomatic aside from sternal discomfort with deep breathing which is to be expected. She is not demonstrating any cardiac consequences or pulmonary consequences from blunt trauma to her chest.. Echo performed yesterday was negative for additional injuries. The patient is able to demonstrate 1200 on incentive spirometer. Vital signs have remained stable. From a surgical standpoint the patient is clear for discharge and follow-up in the office. We will sign off at this time. Please call with any questions or concerns. Thank you Qualifiers: Encounter type: initial encounter Sternal location: body of sternum Fracture type: closed Qualified Code(s): S22.22XA - Fracture of body of sternum, initial encounter for closed fracture Subjective Subjective Patient reports: no new complaints, feels better, still having pain and pain is less; denies nausea, vomiting, shortness of breath, afebrile or fever Interval history since last seen: Patient denies any shortness of breath. Only complains of sternal discomfort with deep breathing. She is able to demonstrate incentive spirometry up to 1200. She states that is better than yesterday. The patient denies any nausea or vomiting. She denies any dizziness or headache. She denies any heart palpitations Exam Const General: cooperative, healthy appearing, comfortable and no acute distress Orientation: alert, awake and oriented x3 Chest Chest: normal inspection of the chest and normal palpation of entire chest wall Resp Effort & Inspection: normal respiratory effort and able to speak in complete sentences Auscultation: clear to auscultation bilaterally Cardio Jugular venous pressure: no JVD Palpation: normal PMI Rate: regular rate Rhythm: regular rhythm Objective Last Vital Signs Temp 96.8 F L 11/12/23 07:30 Pulse 81 11/12/23 07:30 Resp 15 11/12/23 07:30 BP 106/71 11/12/23 07:30 Pulse Ox 98 11/12/23 07:30 PAWSS Have you Been Recently Intoxicated or Drunk Within the Last 30 days?: No Have you Ever Experienced Previous Episodes of Alcohol Withdrawal?: No Have you ever Experienced Withdrawal Seizures?: No Have you ever Experienced Delirium Tremens(DT)s?: No Have you ever undergone Alcohol Rehabilitation Treatment (i.e, inpt ot outpatient treatment programs)?: No Have you ever Experienced Blackouts?: No Have you ever Combined Alcohol with other Downers within the last 90 days?: No Have you ever Combined Alcohol with any other Substance of Abuse during the last 90 days?: No Positive Blood Alcohol level on Presentation? [PCS.BAL]: No Evidence of Increased Autonomic Activity (i.e. HR>120, tremor, sweating, agitation, nausea)?: No Result: 0 Time Spent with Patient Time Spent with Patient: 25-34 minutes Time was spent: preparing to see the patient(eg.review tests), obtaining and/or reviewing separately otained hiistory, referring, communicating with other health urgent care nurse practitioner, indepentently interpreting results and counseling the patient
[2023-11-12 11:29] VITALS: BP 135/79; PULSE 82; RESP 17; TEMP 35.9; O2SAT 97
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
[2023-11-12 15:11] VITALS: BP 116/75; PULSE 81; RESP 17; TEMP 35.8; O2SAT 93
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
--- NOTE | 2023-11-12 18:04 | PDOC.CMDIS ---
Date of service: 11/12/23 Time of Service: 18:04 LACE Index Scoring Tool Questions: Length of Stay (in days): 2 Was the patient admitted via the E.D.?: Yes E.D. Visits: 1 Answers: Total Score: 6 Risk of Readmission: Low Risk Care Management Discharge Plan Reason for Hospitalization: sternal fracture Discharge Plan: Rosalba will be discharged home with new orders for home health PT and OT. She will follow up with her PCP and plan of care and transport with her . Services Needed at Discharge: Home Health Care Services SDOH Health Related Social Needs: No Data to Display
== END 2023-11-12 16:42 | disposition home health service (06) ==
LOC: ER 11-11 00:31 → MS 11-11 01:25
PROVIDERS: Nurse Practitioner Acute Care; Admitting Provider Family Medicine; Emergency Provider Emergency Medicine; PCP Nurse Practitioner Family; Visit Provider Family Medicine
DX: S22.22XA Fracture of body of sternum, initial encounter for closed fracture (principal); I10 Essential (primary) hypertension; F32.A Depression, unspecified; F41.9 Anxiety disorder, unspecified; E78.5 Hyperlipidemia, unspecified; Z79.899 Other long term (current) drug therapy; V49.88XA Car occupant (driver) (passenger) injured in other specified transport accidents, initial encounter; G25.81 Restless legs syndrome; R07.89 Other chest pain; R73.03 Prediabetes
CPT/HCPCS: 00123; 36415; 80048; 80053; 85027; 93005; 96372; 96374; 96375; 96376; 97162; 97530; 99285; 70450; 71046; 71260; 72125; 83735; 84484; 85025; 93010; 93306; 94667; 99233; 99239; G0378; J1170; J1644; J1885; J2470; J3490

== ENCOUNTER 2024-01-20 15:13 | Outpatient (REF) | payer OTHER, SELFPAY | END 2024-01-20 15:14 | disposition home or self-care (01) | LOC: NCHCN 15:13 | PROVIDERS: PCP Nurse Practitioner Family; Visit Provider Family Medicine | DX: N39.0 Urinary tract infection, site not specified (principal) | CPT/HCPCS: 87077; 87086; 87186 ==

== ENCOUNTER 2024-02-08 10:59 | Outpatient (CLI) | payer OTHER, SELFPAY ==
--- NOTE | 2024-02-08 | DI.CT_ITS ---
Exam(s) CT ABDOMEN PELVIS W EXAM: CT ABDOMEN PELVIS W CLINICAL HISTORY: LOWER ABDOMINAL PAIN, R10.30. TECHNIQUE: Imaging Protocol: Axial computed tomography images with coronal and sagittal reformatted images were created and reviewed CONTRAST MATERIAL: Intravenous: Omnipaque 350 Contrast volume:75 ml Oral: no COMPARISON: CT CT CHEST W from 11/10/2023 FINDINGS: ABDOMEN and PELVIS: Lung Bases: No acute findings. Liver: Normal density. No suspicious mass. Gallbladder and biliary tract: No radiodense calculus. No biliary dilation. Pancreas: Normal density. No abnormal calcifications or inflammatory process. No evidence of mass. Spleen: Normal. Kidneys: Normal size, contour and axis. No radiodense stones. Mild bilateral hydronephrosis, right g reater than left. This is likely secondary to secondary inflammation from sigmoid diverticulitis. N o suspicious masses seen. Adrenal glands: No masses seen. Vasculature: Abdominal aorta non-dilated. Soft tissues: Unremarkable. Bladder: No gross wall thickening. No calculi.No focal mass. Bowel: No obstruction. Diverticulosis noted throughout the colon. There is inflammation surroundin g the mid sigmoid consistent with diverticulitis. There is some free fluid but no evidence of absces s or perforation. There are 2 large diverticula at the transverse portion of the duodenum. Appendix normal. Peritoneal cavity: Small amount of free fluid in the low pelvis. No focal collection. No free air. Bones: Unremarkable for age. Reproductive organs: Unremarkable. Lymph nodes: No pathologically enlarged lymph nodes. IMPRESSION:: Sigmoid diverticulitis. Small amount of free fluid in the pelvis. Mild bilateral secondary hydronephrosis, right greater than left. RADIATION DOSE DELIVERED: Total DLP DATA REPOSITORY: All CT scans at this facility are submitted to the National Radiology Data Registry (NRDR) Dose Index Registry (DIR) with the [employer] (A[employer]). RADIATION OPTIMIZATION: All CT scans at this facility use at least one of these dose optimization te chniques: automated exposure control; mA and/or kV adjustment per patient size (includes targeted exa ms where dose is matched to clinical indication); or iterative reconstruction.
[2024-02-08] MEDS: Barium Sulfate 2% W/V-Creamy Vanilla Smoothie 450 ML BTL PO (12:01)
[2024-02-08] MEDS: Barium Sulfate 2% W/V-Berry Smoothie 450 ML BTL PO (12:03)
[2024-02-08 12:44] LABS: Anion Gap 9.1 mmol/L (3-11); BUN 13 mg/dL (7-18); CO2 30.9 mmol/L (21.0-32.0); CREATININE 0.8 mg/dL (0.55-1.02); Calcium 9.6 mg/dL (8.5-10.1); Chloride 101 mmol/L (98-107); Estimated GFR 83.26 (mL/min/1.73m2); Glucose 126 mg/dL (74-106); Potassium 4.3 mmol/L (3.5-5.1); Sodium 141 mmol/L (136-145)
[2024-02-08] MEDS: Normal Saline - Diluent 50 ML VIAL IJ (14:16)
[2024-02-08] MEDS: Omnipaque 350 MG/ML 100 ML BTL IJ (14:17)
== END 2024-02-08 11:19 ==
LOC: DI 11:00
PROVIDERS: PCP Nurse Practitioner Family; Visit Provider Nurse Practitioner Family
DX: N13.39 Other hydronephrosis (principal)
CPT/HCPCS: 80048; 74177; J3490

== ENCOUNTER 2024-08-02 01:03 | Outpatient (CLI) | payer OTHER, SELFPAY ==
--- NOTE | 2024-08-02 12:11 | DI.MAMMO_ITS ---
Exam(s) MAMMO SCREENING EXAM: MAMMO SCREENING CLINICAL HISTORY: SCREENING, Z12.31,FAMILY H/O BREAST CA. TECHNIQUE: Bilateral full field digital CC and MLO mammographic images were obtained with 3D tomosyn thesis and utilizing computer aided detection (CAD). COMPARISON: Prior mammograms were reviewed. FINDINGS: There has been no significant change in the appearance and distribution of the fibroglandular tissue. There are no new spiculated masses nor malignant appearing microcalcification groups. There is no significant architectural distortion nor skin thickening-retraction. IMPRESSION: No radiographic evidence of malignancy. BI-RADS Category 1 - Negative Breast Density - Category B - There are scattered areas of fibroglandular density. Breast density Category C or D implies that the patient has dense breast tissue. Dense breast tissue can make it harder to find cancer on a mammogram. Dense breast tissue is also associated with an incr eased risk of breast cancer. This information about the result of the mammogram report was provided to the patient to raise their awareness. Use this report when you speak with the patient about their risks for breast cancer, which includes their family history. At that time, you may recommend additional screening tests (Ultrasoun d or MRI) as these tests may add significant information. A negative radiographic report should not delay biopsy if a dominant or clinically suspicious mass is present. Up to ten percent of cancers are not identified on mammography. A negative report may reinforce clinical impression. Adenosis and dense breasts may obscure an underlying neoplasm. False positive reports average 6 to 10%. Patient will receive a letter notifying them of these results.
== END 2024-08-02 01:23 ==
LOC: DI 01:03
PROVIDERS: PCP Nurse Practitioner Family; Visit Provider Nurse Practitioner Family
DX: Z12.31 Encounter for screening mammogram for malignant neoplasm of breast (principal); R92.323 Mammographic fibroglandular density, bilateral breasts
CPT/HCPCS: 77063; 77067

== ENCOUNTER 2024-11-07 19:02 | Outpatient (REF) | payer OTHER, SELFPAY ==
[2024-11-07 22:05] LABS: ALT 34 U/L (14-59); AST 18 U/L (15-37); Albumin 4.0 g/dL (3.4-5.0); Alkaline Phosphatase 82 U/L (46-116); Anion Gap 8.8 mmol/L (3-11); BUN 12 mg/dL (7-18); Bilirubin, Total 0.4 mg/dL (0.2-1.0); CO2 29.2 mmol/L (21.0-32.0); Calcium 9.4 mg/dL (8.5-10.1); Calculated LDL 142 mg/dL (<100); Chloride 101 mmol/L (98-107); Cholesterol 256 mg/dL (<200); Estimated GFR 97.12 (mL/min/1.73m2); Glucose 98 mg/dL (74-106); HDL Cholesterol 56 mg/dL (>or=50); Potassium 4.3 mmol/L (3.5-5.1); Sodium 139 mmol/L (136-145); TSH (W/Ref FT4) 1.60 uIU/mL (0.36-3.74); Total Protein 7.0 g/dL (6.4-8.2); Triglyceride 294 mg/dL (<150)
== END 2024-11-07 19:03 | disposition home or self-care (01) ==
LOC: LBN 19:02
PROVIDERS: PCP Nurse Practitioner Family; Visit Provider Nurse Practitioner Family
DX: I10 Essential (primary) hypertension (principal); L63.9 Alopecia areata, unspecified
CPT/HCPCS: 80053; 80061; 84443